=== PATIENT | female | born 1985 | race Caucasian/White ===

== ENCOUNTER → 2017-02-08 | Outpatient (CLI) | payer OTHER | LOC: US 10:43 | DX: E04.9 Nontoxic goiter, unspecified (principal); R53.83 Other fatigue | CPT/HCPCS: 76536 ==

== ENCOUNTER 2021-08-05 15:32 | Emergency (ER) | payer OTHER ==
[~2021-08-05] VITALS: Ht 170.2 cm; Wt 85.3 kg
[2021-08-05 18:22] LABS: HEMOGLOBIN 15.4 gm/dl (12.3-15.3); RED BLOOD COUNT 5.24 M/UL (4.00-5.10); WHITE BLOOD COUNT 4.6 K/UL (4.5-11.0)
[2021-08-05 18:46] LABS: BUN/CREATININE RATIO 8 (0-10)
== END 2021-08-05 21:43 | disposition home or self-care (01) ==
LOC: ER1 15:32
PROVIDERS: Nurse Practitioner
DX: U07.1 COVID-19 (principal); Z23 Encounter for immunization
CPT/HCPCS: 71045; 80053; 81001; 82550; 82553; 83874; 84484; 85025; 93005; 99284; J7030; M0243